=== PATIENT | female | born 1970 | race Caucasian/White ===

== ENCOUNTER 2018-11-25 11:12 | Outpatient (CLI) | payer OTHER ==
[~2018-11-25 11:12] MED LIST: PREVACID30 MG PO
== END 2018-11-25 11:16 | disposition home or self-care (01) ==
LOC: SONOGRAMA 11:12
DX: E04.1 Nontoxic single thyroid nodule (principal)

== ENCOUNTER 2018-12-22 04:50 | Inpatient (IN) | payer OTHER ==
[~2018-12-22 04:50] MED LIST changes: +LISINOPRIL20 MG PO; +SYNTHROID50 MCG PO
[2018-12-23] MEDS ORDERED: PERCOCET 5-3251 EACH PO (13:45)
== END 2018-12-23 15:08 | disposition home or self-care (01) | DRG 627 ==
LOC: CIR.AMB 04:50 → SURH 13:36 → O/R 13:36 → SURH 14:54
PROVIDERS: ADMIT Surgery
PROC: 0GBH0ZZ Excision of Right Thyroid Gland Lobe, Open Approach (ICD-10-PCS; 2018-12-22)
PROC: 0GBG0ZZ Excision of Left Thyroid Gland Lobe, Open Approach (ICD-10-PCS; principal; 2018-12-22 11:30)
DX: C73 Malignant neoplasm of thyroid gland (principal); E04.2 Nontoxic multinodular goiter; E03.8 Other specified hypothyroidism; I11.9 Hypertensive heart disease without heart failure

== ENCOUNTER 2019-05-04 12:40 | Inpatient (IN) | payer OTHER ==
[~2019-05-04] VITALS: Ht 175.3 cm; Wt 97.1 kg
[~2019-05-04 12:40] MED LIST changes: +PERCOCET 5-3251 EACH PO
[2019-05-11] MEDS ORDERED: SYNTHROID137 MCG PO (07:52)
[2019-05-11] MEDS ORDERED: SYNTHROID150 MCG PO (07:53)
[2019-05-11] MEDS ORDERED: CARVEDILOL6.25 M1 PO (07:54)
[2019-05-12] MEDS ORDERED: PERCOCET 5-3251 EACH PO (08:07)
== END 2019-05-12 10:00 | disposition home or self-care (01) | DRG 627 ==
LOC: SURH 05-11 05:30 → O/R 05-11 05:30 → SURH 05-11 13:15 → O/R 05-11 13:15 → SURH 05-11 13:19
PROVIDERS: ADMIT Surgery
PROC: 0GTG0ZZ Resection of Left Thyroid Gland Lobe, Open Approach (ICD-10-PCS; principal; 2019-05-11 13:30)
DX: C73 Malignant neoplasm of thyroid gland (principal); E06.3 Autoimmune thyroiditis

== ENCOUNTER 2019-06-22 09:46 | Outpatient (CLI) | payer OTHER ==
[~2019-06-22 09:46] MED LIST changes: +CARVEDILOL6.25 M1 PO; +SYNTHROID137 MCG PO; +SYNTHROID150 MCG PO
== END 2019-06-22 09:52 | disposition home or self-care (01) ==
LOC: NUCLEAR 09:46
DX: C73 Malignant neoplasm of thyroid gland (principal); E89.0 Postprocedural hypothyroidism
CPT/HCPCS: 79005; A9517

== ENCOUNTER 2019-06-29 09:27 | Outpatient (CLI) | payer OTHER | END 2019-06-29 09:46 | disposition home or self-care (01) | LOC: NUCLEAR 09:27 | DX: C73 Malignant neoplasm of thyroid gland (principal); E89.0 Postprocedural hypothyroidism ==

== ENCOUNTER 2020-07-14 09:55 | Emergency (ER) | payer OTHER ==
[~2020-07-14] VITALS: Ht 175.3 cm; Wt 99.8 kg
[2020-07-14] MEDS ORDERED: CARVEDILOL12.5 M1 PO (10:13)
== END 2020-07-14 13:46 | disposition home or self-care (01) ==
LOC: ER 09:55
DX: B34.9 Viral infection, unspecified (principal); H60.8X3 Other otitis externa, bilateral; J32.8 Other chronic sinusitis

== ENCOUNTER 2021-07-31 07:28 | Outpatient (CLI) | payer OTHER ==
[~2021-07-31 07:28] MED LIST changes: +CARVEDILOL12.5 M1 PO
== END 2021-07-31 09:48 | disposition home or self-care (01) ==
LOC: NUCLEAR 07:28
PROVIDERS: ATTEND Internal Medicine Rheumatology
DX: M54.2 Cervicalgia (principal); M54.59 Other low back pain; M25.50 Pain in unspecified joint